=== PATIENT | female | born 1950 | race Caucasian/White ===

== ENCOUNTER 2022-04-09 13:37 | Observation (INO) | payer MEDICARE ==
[2022-04-09] VITALS (57 sets, daily range): BP systolic 110–209; BP diastolic 56–101
[~2022-04-09] VITALS: Ht 154.9 cm; Wt 73.0 kg
[~2022-04-09 13:37] MED LIST: CIPROFLOXACN500 MG PO; CRESTOR5 M1 PO; DILT-XR180 MG PO; DIOVAN HCT160 MG/25 PO; DIOVAN320 MG PO; ESTRACE VAG0.1 MG/GM VA; FLAGYL500 MG PO; FOSAMAX35 MG OR; FUROSEMIDE20 MG PO; LEVOTHYROXIN50 MC1 PO; LUNESTA3 MG OR; MAG CITRAT1 XX; MEDDOSEPAK PO; OMEPRAZOLE20 MG PO; SYNTHROID50 MCG PO; VITAMIN D31000 UNI1 PO
[2022-04-09 14:23] LABS: ALBUMIN 4.1 g/dL (3.2-5.0); ALKALINE PHOSPHATASE 92 u/l (38-126); ANION GAP 12 (6-22 (CALC)); BILIRUBIN, TOTAL 0.5 mg/dL (0.0-1.4); BUN 16 mg/dL (8-23); BUN/CREATININE RATIO 18 (12-20 (CALC)); CARBON DIOXIDE 24 mmol/l (22-30); CHLORIDE 105 mmol/l (95-108); CREATININE 0.9 mg/dL (0.5-1.0); GFR FOR AFR.AMER. > 60 ML/MIN (>=60 (CALC)); GFR OTHER RACES > 60 ML/MIN (>=60 (CALC)); HEMATOCRIT 39.7 % (37.0-47.0); HEMOGLOBIN 12.9 g/dl (12.0-16.0); IMMATURE GRANULOCYTES 0.2 % (0.0-5.0); LIPASE 1192 u/l (23-300); MEAN CELL VOLUME 92.8 fL CALC (80.0-100.0); MEAN CORPUSCULAR HGB 30.1 pG CALC (26.0-32.0); MEAN CORPUSCULAR HGB CONC 32.5 g/dL CAL (32.0-36.0); NEUT# 3.05 thou/uL (2.00-7.15); POTASSIUM 4.1 mmol/l (3.5-5.1); RED BLOOD COUNT 4.28 mill/uL (4.20-5.60); RED CELL DISTRI WIDTH 13.8 % (11.5-15.5); SGOT/AST 34 u/l (9-36); SODIUM 137 mmol/l (137-146); TOTAL PROTEIN 6.9 g/dL (6.3-8.2)
--- NOTE | 2022-04-09 15:29 | NUR ---
PT IN ROOM ON MONITOR, MEDICATED FOR PAIN AND HYPERTENSION, AWAITING CT SCAN AND LAB RESULTS.
--- NOTE | 2022-04-09 16:01 | NUR ---
PT RETURNED FROM CT, IN ROOM ON MONITOR WITH FAMILY AT BEDSIDE, PAIN IS GONE AT THIS TIME, AWAITING CT RESULTS.
--- NOTE | 2022-04-09 16:45 | NUR ---
PT TO BE ADMITTED.
--- NOTE | 2022-04-09 16:45 | NUR ---
PT REPORTS PAIN IS ELEMINATED
[2022-04-09 17:09] LABS: URINE BILIRUBIN - DIPSTICK NEGATIVE (NEGATIVE); URINE BLOOD DIPSTICK SMALL (NEGATIVE); URINE COLOR YELLOW; URINE GLUCOSE - DIPSTICK NEGATIVE (NEGATIVE); URINE KETONE NEGATIVE (NEGATIVE); URINE LEUK ESTERASE NEGATIVE (NEGATIVE); URINE PH 6.5 (4.5-8.0); URINE PROTEIN - DIPSTICK NEGATIVE (NEG-TRACE); URINE SPECIFIC GRAVITY <=1.005; URINE UROBILINOGEN - DIPSTICK 0.2 E.U./dL (0.2)
[2022-04-09 17:10] LABS: URINE NITRITE - DIPSTICK NEGATIVE (Negative)
--- NOTE | 2022-04-09 17:10 | NUR ---
PT HAS BECOME NAUSEOUS, PROVIDER AWARE, AWAITING MED ORDER.
--- NOTE | 2022-04-09 18:02 | NUR ---
PT GIVEN ADDITIONAL NAUSEA MEDICATION, AWAITING ADMISSION, WILL CONT TO MONITOR.
--- NOTE | 2022-04-09 18:17 | NUR ---
PT REPORTS REDUCTION IN NAUSEA AND HAS NO FURTHER NEEDS AT THIS TIME, AWAITING BED ASSIGNMENT FOR ADMISSION, WILL CONT TO MONITOR.
--- NOTE | 2022-04-09 18:56 | NUR ---
REPORT CALLED TO YANDY CM.
--- NOTE | 2022-04-09 19:20 | NUR ---
PT RECEIVED FROM ED TO ROOM 271. ARRIVES VIA STRETCHER ACCOMPANIED BY SOM RN. PT AMBULATORY TO BED. GAIT STEADY. PT DENIES PAIN AT THIS TIME. ORIENTED TO UNIT, ROOM, CALL JACQUES, LIGHTS, TV. ICE WATER PROVIDED. CALL JACQUES WITHIN REACH. AGREES TO CALL PRN.
--- NOTE | 2022-04-09 19:27 | NUR ---
Admission Note Report Given to: YANDY CM Transported by: Wheelchair X Stretcher Transported with: X Nurse Transporter X Patent IV O2 Bobbin Cleaner Hand Location: ICU X MS2 PT ADMITTED TO [facility], TRANSPORTED VIA STRETCHER BY SOM CM.
--- NOTE | 2022-04-09 20:00 | NUR ---
PHYSICAL ASSESMENT COMPLETE. PT CURRENTLY DENIES PAIN OR DISCOMFORT. SCHEDULED MEDICATIONS AND PRN MEDICATION ADMINISTERED, SEE E-MAR. PT DENIES ANY NEEDS AT THIS TIME. PLAN OF CARE REVIEWED, PT DENIES QUESTIONS, VERBALIZES UNDERSTANDING. ITEMS WITHIN REACH, BED LOCKED IN LOW POSITION W/ BEDRAILS UP X2. CALL JACQUES WITHIN REACH, AGREES TO CALL PRN.
--- NOTE | 2022-04-10 | NUR ---
PT LAYING IN BED WITH EYES CLOSED, APPEARS TO BE SLEEPING, APPEARS COMFORTABLE AND IN NO DISTRESS. RESPIRATIONS REGULAR AND UNLABORED. ITEMS REMAIN WITHIN REACH, CALL JACQUES REMAINS WITHIN REACH. BED REMAINS LOCKED AND IN LOW POSITION WITH BEDRAILS UP X2. WILL CONTINUE TO MONITOR.
--- NOTE | 2022-04-10 02:46 | NUR ---
PT STARTED 2 ND BAG OF FLUID; NORMAL SALINE RUNNING AT 150 ML/HR. PT STATES SHE HAS NO PAIN AT THIS TIME. CALL JACQUES PLACE WITHIN REACH.
--- NOTE | 2022-04-10 03:55 | NUR ---
PT RESTING IN BED, NO SIGNS OF PAIN OR DISTRESS NOTED, RESP EVEN AND UNLABORED. PT VOICES NO NEEDS OR COMPLAINTS AT THIS TIME. CALL LIGHT IN REACH.
[2022-04-10 04:00] VITALS: BP 114/56
[2022-04-10 04:56] VITALS: BP 114/56
[2022-04-10 05:51] LABS: HEMOGLOBIN 11.1 g/dl (12.0-16.0); IMMATURE GRANULOCYTES 0.2 % (0.0-5.0); MEAN CELL VOLUME 95.6 fL CALC (80.0-100.0); MEAN CORPUSCULAR HGB 30.3 pG CALC (26.0-32.0); MEAN CORPUSCULAR HGB CONC 31.7 g/dL CAL (32.0-36.0); NEUT# 3.96 thou/uL (2.00-7.15); RED BLOOD COUNT 3.66 mill/uL (4.20-5.60)
[2022-04-10 06:45] LABS: AMYLASE 98 u/l (30-110); ANION GAP 6 (6-22 (CALC)); BUN 10 mg/dL (8-23); BUN/CREATININE RATIO 13 (12-20 (CALC)); CARBON DIOXIDE 23 mmol/l (22-30); CHLORIDE 112 mmol/l (95-108); CREATININE 0.8 mg/dL (0.5-1.0); GFR FOR AFR.AMER. > 60 ML/MIN (>=60 (CALC)); GFR OTHER RACES > 60 ML/MIN (>=60 (CALC)); LIPASE 304 u/l (23-300); MAGNESIUM 2.1 mg/dL (1.6-2.3); POTASSIUM 3.8 mmol/l (3.5-5.1); SODIUM 138 mmol/l (137-146)
--- NOTE | 2022-04-10 08:00 | NUR ---
patient is a/ox4, able to make needs known to staff. denies pain at this time. stated her abdomen pain has gone away. wears glasses. clear speech. clear lung sounds. active bowel sounds. soft non tender abdomen. no edema present at this time. strong pulses . vital signs are stable. safety measures in place. call light in reach, will cotinue to monitor per hospital's policy.
[2022-04-10 08:06] VITALS: BP 131/63
[2022-04-10 08:21] VITALS: BP 131/63
--- NOTE | 2022-04-10 12:00 | NUR ---
PATIENT SITING UP AT SIDE OF BED EATING LUNCH, TOLERATING WELL.
--- NOTE | 2022-04-10 13:45 | NUR ---
PATIENT REVIEWED D/C PAPERWORK, STATED SHE UNDERSTOOD, SIGNED, IV REMOVED. STABLE. WHEELED DOWN TO HER CAR WITH AT OUR SIDES. RACHAEL WITH PATIENT.
== END 2022-04-10 14:35 | disposition home or self-care (01) ==
LOC: ED 13:37 → ED-I 16:24 → ED 16:50 → MS2 16:50
PROVIDERS: Family Medicine; Internal Medicine; ADMIT Internal Medicine; ATTEND Internal Medicine
DX: K85.90 Acute pancreatitis without necrosis or infection, unspecified (principal); I10 Essential (primary) hypertension; E78.5 Hyperlipidemia, unspecified; K21.9 Gastro-esophageal reflux disease without esophagitis; E03.9 Hypothyroidism, unspecified; Z90.49 Acquired absence of other specified parts of digestive tract; Z20.822 Contact with and (suspected) exposure to COVID-19
CPT/HCPCS: G0378; J1650; Q9967; S0164

== ENCOUNTER 2022-08-08 10:15 | Emergency (ER) | payer MEDICARE ==
[~2022-08-08] VITALS: Ht 154.9 cm; Wt 70.3 kg
[2022-08-08 10:25] VITALS: BP 171/87
[2022-08-08 10:30] VITALS: BP 160/79
[2022-08-08] MEDS ORDERED: WELLBUTRIN100 M2 PO (10:30)
[2022-08-08 10:47] LABS: HEMATOCRIT 40.4 % (37.0-47.0); IMMATURE GRANULOCYTES 0.4 % (0.0-5.0); MEAN CELL VOLUME 92.4 fL CALC (80.0-100.0); MEAN CORPUSCULAR HGB 30.2 pG CALC (26.0-32.0); MEAN CORPUSCULAR HGB CONC 32.7 g/dL CAL (32.0-36.0); NEUT# 3.94 thou/uL (2.00-7.15); RED BLOOD COUNT 4.37 mill/uL (4.20-5.60); RED CELL DISTRI WIDTH 13.4 % (11.5-15.5)
[2022-08-08 10:52] LABS: ALBUMIN 4.2 g/dL (3.2-5.0); ALKALINE PHOSPHATASE 107 u/l (38-126); ANION GAP 13 (6-22 (CALC)); BUN 11 mg/dL (8-23); BUN/CREATININE RATIO 13 (12-20 (CALC)); CARBON DIOXIDE 22 mmol/l (22-30); CHLORIDE 107 mmol/l (95-108); CREATININE 0.9 mg/dL (0.5-1.0); GFR FOR AFR.AMER. > 60 ML/MIN (>=60 (CALC)); GFR OTHER RACES > 60 ML/MIN (>=60 (CALC)); LIPASE 198 u/l (23-300); POTASSIUM 4.1 mmol/l (3.5-5.1); SGOT/AST 30 u/l (9-36); SODIUM 137 mmol/l (137-146); TOTAL PROTEIN 7.4 g/dL (6.3-8.2)
[2022-08-08 11:03] LABS: URINE BILIRUBIN - DIPSTICK NEGATIVE (NEGATIVE); URINE BLOOD DIPSTICK TRACE-INTACT (NEGATIVE); URINE COLOR YELLOW; URINE GLUCOSE - DIPSTICK NEGATIVE (NEGATIVE); URINE KETONE NEGATIVE (NEGATIVE); URINE LEUK ESTERASE NEGATIVE (NEGATIVE); URINE PH 6.5 (4.5-8.0); URINE PROTEIN - DIPSTICK NEGATIVE (NEG-TRACE); URINE SPECIFIC GRAVITY 1.025; URINE UROBILINOGEN - DIPSTICK 0.2 E.U./dL (0.2)
[2022-08-08 11:04] LABS: HEMOGLOBIN 13.2 g/dl (12.0-16.0)
[2022-08-08 11:04] LABS: URINE NITRITE - DIPSTICK NEGATIVE (Negative)
[2022-08-08 11:19] LABS: BILIRUBIN, TOTAL 0.6 mg/dL (0.0-1.4)
[2022-08-08 12:00] VITALS: BP 158/69
[2022-08-08 12:19] VITALS: BP 157/78
[2022-08-08 12:30] VITALS: BP 161/87
[2022-08-08] MEDS ORDERED: PROTONIX20 M1 PO (12:48)
[2022-08-08] MEDS ORDERED: PROMETHAZINE12.5 M4 PO (12:48)
[2022-08-08 12:52] VITALS: BP 161/87
== END 2022-08-08 13:00 | disposition home or self-care (01) ==
LOC: ED 10:15
PROVIDERS: Family Medicine
DX: R10.13 Epigastric pain (principal); I10 Essential (primary) hypertension; Z20.822 Contact with and (suspected) exposure to COVID-19
CPT/HCPCS: Q9967